=== PATIENT | female | born 1955 | race Caucasian/White ===

== ENCOUNTER 2020-07-23 11:23 | Outpatient (CLI) | payer MEDICARE, SELFPAY ==
--- NOTE | 2020-07-23 11:32 | MM_ITS ---
WS: [id number] BILATERAL SCREENING DIGITAL MAMMOGRAM WITH CAD HISTORY: SCREENING COMPARISON: 06/04/2019 at 06/02/2018 Bilateral CC and MLO views submitted. Computer aided detection analyzed. Breast composition: The breasts are heterogeneously dense, which may obscure small masses. No suspici ous masses, microcalcifications or architectural distortion. Benign calcifications within each breast . MM/[id number] IMPRESSION: BI-RADS: 2-Benign FOLLOW UP: 1 Year Follow-up
== END 2020-07-23 11:24 | disposition home or self-care (01) ==
LOC: RADSHAW 11:28
PROVIDERS: Family Provider Nurse Practitioner Family; PCP Nurse Practitioner Family; Visit Provider Nurse Practitioner Family
DX: Z12.31 Encounter for screening mammogram for malignant neoplasm of breast (principal)
CPT/HCPCS: 77067

== ENCOUNTER 2021-08-31 15:16 | Outpatient (CLI) | payer MEDICARE, SELFPAY ==
--- NOTE | 2021-08-31 15:26 | XR_ITS ---
WS: [id number] Thoracic spine, 3 views, 08/31/2021 Clinical Data: BACK PAIN, THORACIC REGION Comparison: None. Findings: No compression fractures are seen. The disc heights are normal. There is osteoarthritis of all thoracic vertebral bodies. There is a slight dextroscoliosis. The para vertebral regions are not remarkable. XR/XR thoracic spine 3V* [id number] Impression: Moderate osteoarthritis of all the thoracic vertebral bodies.
== END 2021-08-31 15:17 | disposition home or self-care (01) ==
LOC: RAD 15:20
PROVIDERS: PCP Nurse Practitioner Family; Visit Provider Nurse Practitioner Family
DX: M47.814 Spondylosis without myelopathy or radiculopathy, thoracic region (principal)
CPT/HCPCS: 72072

== ENCOUNTER 2021-10-02 09:02 | Outpatient (CLI) | payer MEDICARE, SELFPAY ==
--- NOTE | 2021-10-02 09:30 | MM_ITS ---
WS: [id number] Bilateral screening 3D tomosynthesis digital mammogram, 10/02/2021 Clinical Data: SCREENING Comparison: 07/23/2020, 06/04/2019, 06/02/2018. Findings: The breast parenchymal pattern shows heterogeneous density No spiculated masses or clustered calcific ations are seen. There are no secondary signs of carcinoma. There are lymph nodes in both axilla. MM/[place] [id number] Impression: 1. Negative bilateral mammogram unchanged. 2. Recommend annual screening mammograms. BIRADS: 1-Negative FOLLOW UP: 1 Year Follow-up The CAD checker dump grounds was used.
--- NOTE | 2021-10-02 09:43 | XR_ITS ---
WS: [id number] Right rib detail, 3 views, 10/02/2021 Clinical Data: RIGHT SIDED RIB PAIN Comparison: None. Findings: No rib fractures are seen. There is no bone destruction or erosion. No pneumothorax or subcutaneous e mphysema is seen. There is osteoarthritic change of the thoracic vertebral bodies. XR/XR ribs RT 2V* [id number] Impression: Negative right rib detail.
--- NOTE | 2021-10-02 09:51 | US_ITS ---
WS: [id number] Ultrasound of the right axilla, 10/02/2021 Clinical Data: AXILLARY MASS/HX OF ABSCESS Comparison: None. Findings: The right axilla demonstrated only normal tissue. No cysts or masses were seen. There is no evidence of an abscess. US/US soft tissue/extremity [id number] Impression: Negative right axillary ultrasound.
== END 2021-10-02 09:03 | disposition home or self-care (01) ==
LOC: RAD 09:25
PROVIDERS: PCP Nurse Practitioner Family; Visit Provider Family Medicine
DX: Z12.31 Encounter for screening mammogram for malignant neoplasm of breast (principal); R22.9 Localized swelling, mass and lump, unspecified
CPT/HCPCS: 71100; 76882; 77063; 77067

== ENCOUNTER 2022-11-25 08:39 | Outpatient (CLI) | payer MEDICARE, SELFPAY ==
--- NOTE | 2022-11-25 08:44 | MM_ITS ---
WS: [id number] Bilateral screening 3D tomosynthesis digital mammogram, 11/25/2022 Clinical Data: SCREENING Comparison: 10/02/2021, 07/23/2020, 06/04/2019, 06/02/2018. Findings: The breast parenchymal pattern shows heterogeneous density. No spiculated masses or clustered calcifi cations are seen. There are no secondary signs of carcinoma. MM/[place] [id number] Impression: 1. Negative bilateral mammogram unchanged. 2. Recommend annual screening mammograms. BIRADS: 1-Negative FOLLOW UP: 1 Year Follow-up The CAD hot box checker was used.
== END 2022-11-25 08:40 | disposition home or self-care (01) ==
PROVIDERS: PCP Nurse Practitioner Family; Visit Provider Nurse Practitioner Family
DX: Z12.31 Encounter for screening mammogram for malignant neoplasm of breast (principal)
CPT/HCPCS: 77063; 77067

== ENCOUNTER 2023-11-29 08:49 | Outpatient (CLI) | payer MEDICARE, SELFPAY ==
--- NOTE | 2023-11-29 08:55 | MM_ITS ---
WS: [id number] BILATERAL 3D TOMOSYNTHESIS DIGITAL SCREENING MAMMOGRAPHY WITH CAD CLINICAL INFORMATION: SCREENING HISTORY: Screening mammogram. No current complaints. COMPARISON: 2022 TECHNIQUE: Bilateral CC and MLO views. FINDINGS: The breasts are composed of heterogeneous fibroglandular density tissue, which can limit the detectio n of small underlying mass lesions. No suspicious mass, asymmetry, calcifications, or architectural d istortion. No evidence of malignancy. Punctate and lucent centered calcifications. MM/[place] [id number] IMPRESSION: BI-RADS: 2-Benign FOLLOW UP: 1 Year Follow-up Recommend return to annual screening mammography.
== END 2023-11-29 08:50 | disposition home or self-care (01) ==
LOC: RAD 08:49
PROVIDERS: PCP Nurse Practitioner Family; Visit Provider Nurse Practitioner Family
DX: Z12.31 Encounter for screening mammogram for malignant neoplasm of breast (principal); R92.333 Mammographic heterogeneous density, bilateral breasts; R92.1 Mammographic calcification found on diagnostic imaging of breast
CPT/HCPCS: 77063; 77067

== ENCOUNTER 2024-12-03 13:45 | Emergency (ER) | payer MEDICARE, SELFPAY ==
[2024-12-03 13:51] VITALS: BP 118/60; PULSE 83; RESP 17; TEMP 36.6; O2SAT 96; BMI 28.1
[2024-12-03 15:51] LABS: Basophils # 0.1 10^3/uL (0.0-0.1); Basophils % 0.6 %; Eosinophils # 0.2 10^3/uL (0.0-0.8); Eosinophils % 1.8 %; Hematocrit 50.3 % (36-47); Lymphocytes # 2.4 10^3/uL (0.8-4.8); Lymphocytes % 28.1 %; Mean Corpuscular Hemoglobin 29.7 pg (27-33); Mean Corpuscular Volume 84.8 fl (85-98); Monocytes # 0.9 10^3/uL (0.2-0.9); Monocytes % 10.5 %; Neutrophils # 4.86 10^3/uL (1.8-7.7); Neutrophils % 58.3 %; Nucleated Red Blood Cells % 0 %; Platelet Count 285 10^3/cmm (157-399); Red Blood Count 5.93 10^6/uL (3.85-5.65); Red Cell Distribution Width 13.1 % (12.1-15.1); White Blood Count 8.35 10^3/uL (3.29-11.43)
[2024-12-03 16:36] LABS: Alanine Aminotransferase 10 U/L (0-33); Albumin Level 3.7 g/dL (3.5-5.2); Alkaline Phosphatase 59 U/L (35-105); Blood Urea Nitrogen 13 mg/dL (8-23); Calcium 8.8 mg/dL (8.5-10.5); Carbon Dioxide 16 mmol/L (22-29); Creatinine Clr Calc Pharmacy 60.7704; Glomerular Filtration Rate 99.1 mL/min (90-130); Glucose 202 mg/dL (65-115); Lipase 30 U/L (13-60); Total Bilirubin 0.6 mg/dL (0.15-1.2); Total Protein 6.7 g/dL (6.6-8.7)
[2024-12-03 16:52] LABS: Slide Review Slide Review Perform
[2024-12-03 17:15] LABS: Anion Gap 29.9 (5-19); Chloride 91 mmol/L (98-107); Osmolality Calculated 284 mOsm/kg (285-295); Sodium 134 mmol/L (136-145)
[2024-12-03 17:16] LABS: Potassium 2.9 mmol/L (3.5-5.1)
[2024-12-03 17:23] LABS: Aspartate Amino Transferase 19 U/L (0-32)
--- NOTE | 2024-12-03 19:00 | CTR_ITS ---
PROCEDURE INFORMATION: Exam: CT Abdomen And Pelvis Without Contrast Exam date and time: 12/03/2024 7:08 PM Age: 69 years old Clinical indication: Abdominal pain; Generalized; Prior surgery; Surgery date: 6+ months; Surgery type: Hysterectomy; Additional info: Diffuse abd pain TECHNIQUE: Imaging protocol: Computed tomography of the abdomen and pelvis without contrast. Radiation optimization: All CT scans at this facility use at least one of these dose optimization techniques: automated exposure control; mA and/or kV adjustment per patient size (includes targeted exams where dose is matched to clinical indication); or iterative reconstruction. COMPARISON: CR XR ribs RT 2V* [id number] 10/02/2021 10:08 AM RADIATION DOSE METRICS: Total DLP (mGy-cm): 531.43 FINDINGS: Liver: Liver demonstrates diffuse mild hypodensity. Liver appears heterogeneous with irregular border. Possible hepatic parenchymal disease. Gallbladder and biliary ducts: Cholelithiasis is demonstrated. The gallbladder appears otherwise unremarkable. No evidence for biliary dilatation. Pancreas: Unremarkable. Spleen: Incidental calcifications noted within the spleen, compatible with old granulomatous disease. Adrenal glands: Normal. No mass. Kidneys and ureters: The kidneys appear irregular with lobulated contours and areas of cortical thinning. Findings suggesting potential renal parenchymal disease. No visualized renal hydronephrosis. No visible renal calculi. Stomach and bowel: Prominent fluid identified within the bowel, colon and rectum, compatible with diarrheal state. Findings are compatible with infectious or inflammatory gastroenteritis. Appendix: The visualized appendix appears unremarkable. Intraperitoneal space: No free air. No significant fluid collection. Vasculature: Unremarkable. No abdominal aortic aneurysm. Lymph nodes: No enlarged lymph nodes. Urinary bladder: Unremarkable as visualized. Reproductive: Unremarkable as visualized. Bones/joints: Moderate to severe bony degenerative changes involving the lumbar spine region. Disc and osteophyte complexes with moderate to severe central canal and foraminal narrowing within the lumbar spine. Severe central canal narrowing at L4-L5 level, axial image 45. Soft tissues: Unremarkable. Other findings: Limited study with motion artifact. CT/CT abdomen pelvis wo con [id number] IMPRESSION: 1. Findings compatible with diarrheal state, infectious or inflammatory gastroenteritis. See above details. 2. Possible mild hepatic steatosis. Nonspecific heterogeneous and irregular appearance of the liver. Recommend correlation with liver function tests. 3. Cholelithiasis.
[2024-12-03 19:35] LABS: Magnesium 2.1 mg/dL (1.7-2.3)
--- NOTE | 2024-12-03 19:48 | ED_ITS ---
HPI - Nausea/Vomiting/Diarrhea 2 General: Chief complaint: Nausea/Vomiting/Diarrhea Stated complaint: abdominal pain Time Seen by Provider: 12/03/24 18:50 History of Present Illness: Patient started having nausea, vomiting, and diarrhea just over a week ago, 8 days ago, after eating at a French restaurant. She stated she ate there with her brother, however brother did not get sick. She had nausea and vomiting and loose stools this morning. She did take Imodium x 2, and diarrhea has subsided today. This has been ongoing throughout the week on a daily basis. Modifying factors: Patient is on Ozempic 0.5 mg/weekly. She states her stools are liquid, green. Denies recent antibiotic use. No exposure to illness. No fevers. Initial laboratory findings note potassium of 2.9, hemoglobin elevated Associated nausea: Yes Associated symtoms: Reports nausea; Denies anxiety, change in vision, chest pain, headache(s) or palpitations Related Data Previous Rx's ?Medication ?Instructions ?Recorded ondansetron 4 mg disintegrating 4 mg PO Q8H PRN nausea and 12/03/24 tablet vomiting 4 days #10 tabs Allergies Allergy/AdvReac Type Severity Reaction Status Date / Time naproxen Allergy Unknown Verified 12/03/24 13:54 Review of Systems 2 General: Reports: 10 or more systems reviewed and unremarkable except in HPI and below Const: Denies: fever(s) or chills Eyes: Denies: change in vision or blurry vision Card: Denies: chest pain or palpitations Resp: Denies: dyspnea or productive cough GI: Reports: abdominal pain, nausea, vomiting and change in bowel habits : Reports: oliguria; Denies: flank pain or difficulty voiding Musc: Denies: neck pain or back pain Skin/Breast: Denies: rash or pruritus Neuro: Denies: headache(s) or numbness in extremities Psych: Denies: anxiety or depression Arie/Lymph: Denies: easy bruising or easy bleeding Physical Exam 2 Const: COMMON NORMALS: no acute distress, average body habitus and patient oriented x3 HENMT: COMMON NORMALS: normocephalic, atraumatic and Normal external nose present; oral mucous membranes not moist and oropharynx not normal (dry) HEAD & SCALP: normal to inspection, normocephalic and atraumatic FACE & SINUS: normal facial exam and sinuses nontender NOSE: Normal external nose present and Normal nares present Neck/C-Spine: COMMON NORMALS: full ROM and no lymphadenopathy Lymph: LYMPHATIC: no lymphadenopathy noted Resp: COMMON NORMALS: normal respiratory effort and clear to auscultation bilaterally AUSCULTATION: clear to auscultation bilaterally Cardio: COMMON NORMALS: regular rate and regular rhythm RATE: regular rate RHYTHM: regular rhythm GI: COMMON NORMALS: Soft to palpation AUSCULTATION: Yes normoactive bowel sounds PALPATION: Yes Soft to palpation, Yes Tenderness to palpation present (GI) Details: LLQ and RLQ and No Guarding due to palpation present (GI) R ECTAL EXAM: deferred : COMMON NORMALS: Yes no CVA tenderness BLADDER/KIDNEY EXAM: Yes no CVA tenderness Back/Pelvis: COMMON NORMALS: no CVA tenderness Extremity: COMMON NORMALS: normal to inspection, full ROM and capillary refill normal Neuro: COMMON NORMALS: patient oriented x3 and CN's II-XII intact bilaterally Psych: COMMON NORMALS: mental status grossly normal, Normal thought process present and cooperative THOUGHT PROCESS: Normal thought process present Course 2 Reevaluation(s): Reevaluation #1: Patient states she is doing better after Zofran. She does not have the urge for stool sample at this time. Will continue IV fluids with potassium replacement, and reassess Reevaluation #2: Patient is improved after IV fluids. Will discharge home with full liquid diet, and precautions Vital Signs: Vital signs: Vital Signs Temperature 97.9 F 12/03/24 13:51 Pulse Rate 117 H 12/03/24 22:47 Respiratory Rate 18 12/03/24 22:47 Blood Pressure 117/81 12/03/24 22:47 Pulse Oximetry 97 12/03/24 22:47 Oxygen Delivery Me thod Room Air 12/03/24 22:47 MDM - Nausea/Vomiting/Diarrhea Medical Decision Making Patient's potassium is 2.9, CO2 of 16, and hemoglobin elevated at 17. Patient is hypovolemic, dehydrated, has association metabolic acidosis, and secondary polycythemia vera. Given her abdominal pain, CT was ordered, which is consistent with a gastroenteritis. So far she has not been able to produce a stool. This would be nice to check stool culture and WBC. She has not had recent antibiotics, and therefore C. difficile is less likely however will check if patient can produce a stool. To control her nausea, Zofran has been sent to the pharmacy, which will help with bulking of stools. Will place patient on a full liquid diet until her symptoms resolve and have her follow-up closely this week. She will need repeat labs. Lab Data 12/03/24 15:18 12/03/24 15:18 Radiology Impressions Abdomen/Pelvis CT 12/03/24 19:00 IMPRESSION: 1. Findings compatible with diarrheal state, infectious or inflammatory gastroenteritis. See above details. 2. Possible mild hepatic steatosis. Nonspecific heterogeneous and irregular appearance of the liver. Recommend correlation with liver function tests. 3. Cholelithiasis. Laboratory Results WBC 8.35 10^3/uL (3.29-11.43) 12/03/24 15:18 RBC 5.93 10^6/uL (3.85-5.65) H 12/03/24 15:18 Hgb 17.60 g/dL (11.27-16.99) H 12/03/24 15:18 Hct 50.3 % (36-47) H 12/03/24 15:18 MCV 84.8 fl (85-98) L 12/03/24 15:18 MCH 29.7 pg (27-33) 12/03/24 15:18 MCHC 35.0 g/dL (30-55) 12/03/24 15:18 RDW 13.1 % (12.1-15.1) 12/03/24 15:18 Plt Count 285 10^3/cmm (157-399) 12/03/24 15:18 MPV 10.0 fL (7.4-10.4) 12/03/24 15:18 Neut % (Auto) 58.3 % 12/03/24 15:18 Lymph % (Auto) 28.1 % 12/03/24 15:18 [place] % (Auto) 10.5 % 12/03/24 15:18 Eos % (Auto) 1.8 % 12/03/24 15:18 Baso % (Auto) 0.6 % 12/03/24 15:18 Neut # (Auto) 4.86 10^3/uL (1.8-7.7) 12/03/24 15:18 Lymph # (Auto) 2.4 10^3/uL (0.8-4.8) 12/03/24 15:18 [place] # (Auto) 0.9 10^3/uL (0.2-0.9) 12/03/24 15:18 Eos # (Auto) 0.2 10^3/uL (0.0-0.8) 12/03/24 15:18 Baso # (Auto) 0.1 10^3/uL (0.0-0.1) 12/03/24 15:18 Nucleated RBC % (auto) 0 % 12/03/24 15:18 Nucleated RBCs # 0.0 /100WBC 12/03/24 15:18 Sodium 134 mmol/L (136-145) L 12/03/24 15:18 Potassium 2.9 mmol/L (3.5-5.1) L 12/03/24 15:18 Chloride 91 mmol/L (98-107) L 12/03/24 15:18 Carbon Dioxide 16 mmol/L (22-29) L 12/03/24 15:18 Anion Gap 29.9 (5-19) H 12/03/24 15:18 BUN 13 mg/dL (8-23) 12/03/24 15:18 Creatinine 0.6 mg/dL (0.5-0.9) 12/03/24 15:18 GFR Calculation 99.1 mL/min (90-130) 12/03/24 15:18 Glucose 202 mg/dL (65-115) H 12/03/24 15:18 Calculated Osmolality 284 mOsm/kg (285-295) L 12/03/24 15:18 Lactic Acid 1.5 mmol/L (0.5-2.2) 12/03/24 19:35 Calcium 8.8 mg/dL (8.5-10.5) 12/03/24 15:18 Magnesium 2.1 mg/dL (1.7-2.3) 12/03/24 15:18 Total Bilirubin 0.6 mg/dL (0.15-1.2) 12/03/24 15:18 AST 19 U/L (0-32) 12/03/24 15:18 ALT 10 U/L (0-33) 12/03/24 15:18 Alkaline Phosphatase 59 U/L (35-105) 12/03/24 15:18 Total Protein 6.7 g/dL (6.6-8.7) 12/03/24 15:18 Albumin 3.7 g/dL (3.5-5.2) 12/03/24 15:18 Globulin 3.0 g/dL (1.3-4.6) 12/03/24 15:18 Lipase 30 U/L (13-60) 12/03/24 15:18 All radiology interpretation(s) finalized by discharge Discharge Plan Discharge Patient Disposition: Home Clinical Impression: Gastroenteritis, Metabolic acidosis, Dehydration, Hypokalemia, Secondary polycythemia Condition: Stable Prescriptions: New ondansetron 4 mg tablet,disintegrating 4 mg PO Q8H PRN (Reason: nausea and vomiting) 4 Days Qty: 10 0RF Discharge Orders: Discharge ED (Routine); Ordered 12/03/24 Ordered By: Nancy Hernandez Referrals: Anna Le FNP [Primary Care Provider, [facility]] Discharge Diet: Full LIquid Discharge Activity: Resume usual activity Patient Instructions: Gastroenteritis (ED), Acute Nausea and Vomiting (ED) Activity Restrictions/Additional Instructions: You will need repeat labs with your physician, CBC, BMP. Your physician will know what these labs are. Feel free to return to the ED for follow-up if you have worsening symptoms, ongoing diarrhea Zofran has been sent to the pharmacy which will help with nausea, vomiting, and also help with constipation/bulking your stool. Stay on a full liquid diet and advance if your nausea, vomiting, and diarrhea resolve. This should be advanced carefully to a bland diet. Return to ED for fevers, worsening abdominal pain. Print Language: Colombian Coding Level of Care Code ED Dredge Deckhand for Osbaldo Craig
[2024-12-03 20:05] VITALS: BP 128/73; RESP 18; O2SAT 96
[2024-12-03] MEDS: potassium chloride oral liq 20 mEq/15 mL UDC PO (20:13)
[2024-12-03] MEDS: ondansetron 2 mg/ML SDV 2 mL 4 MG IVP (20:13)
[2024-12-03] MEDS: sodium chlor 0.9% + KCl 20 mEq 20 MEQ/1,000 ML BAG 999 MEQ IV (20:19)
[2024-12-03 20:23] LABS: Lactic Sepsis W/Reflex 1.5 mmol/L (0.5-2.2)
[2024-12-03] MEDS: sodium chloride 0.9% 1,000 ML 999 ML IV (22:42)
[2024-12-03 22:47] VITALS: BP 117/81; PULSE 117; RESP 18; O2SAT 97
[2024-12-04 00:23] VITALS: BP 124/83; PULSE 76; RESP 14; O2SAT 95
== END 2024-12-04 00:24 | disposition home or self-care (01) ==
PROVIDERS: Emergency Medicine; Emergency Provider Physician Assistant; PCP Nurse Practitioner Family
DX: K52.9 Noninfective gastroenteritis and colitis, unspecified (principal); E87.20 Acidosis, unspecified; E86.0 Dehydration; E87.6 Hypokalemia; D75.1 Secondary polycythemia
CPT/HCPCS: 36415; 74176; 80053; 83605; 83690; 83735; 85025; 96365; 96375; 99285; J2405; J3480; J7030; J9999

== ENCOUNTER 2025-01-10 09:39 | Outpatient (CLI) | payer MEDICARE, SELFPAY ==
--- NOTE | 2025-01-10 09:40 | MM_ITS ---
WS: [id number] BILATERAL SCREENING DIGITAL TOMOSYNTHESIS MAMMOGRAM WITH CAD HISTORY: SCREENING COMPARISON: 11/29/2023, 11/25/2022 Bilateral CC and MLO views with tomosynthesis and synthetic mammography submitted. Computer aided detection analyzed. Breast composition: There are scattered areas of fibroglandular density. No suspicious masses, microcalcifications or architectural distortion. Numerous benign calcifications in each breast. No suspicious grouping of calcifications. No distortion. MM/MM scr tomosynthesis [id number] IMPRESSION: BI-RADS: 2 - Benign. FOLLOW UP: 1 Year Follow-up
== END 2025-01-10 09:40 | disposition home or self-care (01) ==
LOC: MOBLMAM 09:41
PROVIDERS: PCP Family Medicine; Visit Provider Family Medicine
DX: Z12.31 Encounter for screening mammogram for malignant neoplasm of breast (principal); R92.323 Mammographic fibroglandular density, bilateral breasts; R92.1 Mammographic calcification found on diagnostic imaging of breast
CPT/HCPCS: 77063; 77067